=== PATIENT | female | born 1960 | race Caucasian/White ===

== ENCOUNTER 2023-03-27 16:13 | Emergency (ER) | payer BC ==
[2023-03-27] MEDS ORDERED: Bacitracin Oint 1 GM U/D Packet TOP ONE (16:40)
[2023-03-27] MEDS ORDERED: Diphtheria,Pertussis(Acell),Tetanus Vaccine 0.5 ML Syringe IM ONE (16:40)
== END 2023-03-27 17:47 | disposition home or self-care (01) ==
LOC: JP.ED 16:13
DX: S61.217A Laceration without foreign body of left little finger without damage to nail, initial encounter (principal); K21.9 Gastro-esophageal reflux disease without esophagitis; Z79.899 Other long term (current) drug therapy; Z86.16 Personal history of COVID-19; Z88.0 Allergy status to penicillin; W29.0XXA Contact with powered kitchen appliance, initial encounter
CPT/HCPCS: 12001; 99282